=== PATIENT | female | born 1985 | race Caucasian/White ===

== ENCOUNTER 2020-05-23 05:14 | Inpatient (IN) ==
[2020-05-16 15:57] LABS: Basophils # 0.1 10*3/uL (0.0-0.2); Basophils % 0.7 % (0.0-0.8); Eosinophils # 0.1 10*3/uL (0.0-0.87); Eosinophils % 1.2 % (0.00-10.9); Hematocrit 40.1 VOL% (35.7-47.0); Immature Granulocytes % 0.4 %; Immature Granulocytes Absolute 0.04 #; Lymphocytes # 2.3 10*3/uL (1.4-4.0); Lymphocytes % 24.2 % (21.3-54.2); Mean Corpuscular HGB Conc 32.4 GM/DL (32-36); Mean Corpuscular Volume 90.1 FL (87-102); Mean Platelet Volume 9.3 FL (9.6-12.0); Monocytes % 5.8 % (1.7-12.7); Neutrophils % 67.7 % (38.7-73.9); Platelet Count 410 T/CUMM (130-400); Red Blood Count 4.45 MC/CUMM (3.8-5.5); Red Cell Distribution Width 13.5 % (9.3-17.3); White Blood Count 9.7 T/CUMM (4-12)
[2020-05-16 16:04] LABS: Bilirubin,Urine Negative (Negative); Blood, Urine Large mg/dL (Negative); Glucose,Urine (UA) Negative (Negative); Ketones,Urine Negative (Negative); Mucus,Urine Occasional /LPF (Occasional); Nitrite,Urine Negative (Negative); Protein,Urine Negative; RBC,Urine 81 /HPF (0-4); Squamous Epithelial Cell,Urine Occasional /HPF (0-10); Urine Appearance CLOUDY (Clear); Urine Color Amber (Yellow); Urine Specific Gravity 1.018 (1.001-1.035); Urine Urobilinogen < 2.0 EU/DL (0.2-1.0); WBC,Urine 3 /HPF (0-6)
[2020-05-16 16:09] LABS: PT Patient Result 10.3 SECS (9.8-11.9); Partial Thromboplastin Time 27.1 SECS (23.9-33.8)
[2020-05-16 16:18] LABS: Calcium 9.6 MG/DL (8.5-10.1); Osmolality,Calculated 273.7 MOS/KG (273-304); Potassium 4.2 MMOL/L (3.5-5.1)
[2020-05-23] MEDS ORDERED: FAMOTIDINE 20 MG TABLET PO ONE (06:00)
[2020-05-23] MEDS ORDERED: GABAPENTIN 400 MG CAPSULE PO ONE (06:00)
[2020-05-23] MEDS ORDERED: ceFAZolin 1,000 MG in SYRINGE 1 EACH IV ONE (06:00)
[2020-05-23] MEDS ORDERED: ACETAMINOPHEN 500 MG TABLET PO ONE (06:00)
[2020-05-23] MEDS ORDERED: DIAZEPAM 5 MG TABLET PO ONE (06:00)
[2020-05-23] MEDS ORDERED: LACTATED RINGERS 1,000 ML IV SCH (08:30)
[2020-05-23] MEDS ORDERED: INDIGO CARMINE 5 ML AMP ONE (09:32)
[2020-05-23] MEDS ORDERED: LIDOCAINE 2% 5 ML VIAL ONE (09:36)
[2020-05-23] MEDS ORDERED: MIDAZOLAM 2 MG/2 ML VIAL ONE (09:36)
[2020-05-23] MEDS ORDERED: fentaNYL 100 MCG/2 ML VIAL ONE ×3 (09:36→13:17)
[2020-05-23] MEDS ORDERED: propofoL 200 MG/20 ML VIAL IV ONE (09:36)
[2020-05-23] MEDS ORDERED: ONDANSETRON 4 MG/2 ML VIAL ONE (09:36)
[2020-05-23] MEDS ORDERED: ROCURONIUM 50 MG/5 ML VIAL IV ONE ×2 (09:36→12:06)
[2020-05-23] MEDS ORDERED: FUROSEMIDE 20 MG/2 ML VIAL ONE (10:40)
[2020-05-23] MEDS ORDERED: NEOSTIGMINE 10 MG/10 ML VIAL ONE (11:56)
[2020-05-23] MEDS ORDERED: HYDROmorphone 2 MG/1 ML VIAL ONE (11:56)
[2020-05-23] MEDS ORDERED: GLYCOPYRROLATE 0.4 MG/2 ML VIAL ONE (11:56)
[2020-05-23] MEDS ORDERED: SUGAMMADEX 200 MG/2 ML VIAL IV ONE (13:23)
[2020-05-23] MEDS ORDERED: ONDANSETRON 4 MG/2 ML VIAL IV PRN ×2 (14:44→14:52)
[2020-05-23] MEDS ORDERED: ACETAMINOPHEN 325 MG TABLET PO PRN (14:44)
[2020-05-23] MEDS ORDERED: BENZOCAINE/MENTHOL LOZENGE 18/BOX PO PRN (14:44)
[2020-05-23] MEDS ORDERED: BISACODYL 10 MG SUPP RECTAL PRN (14:44)
[2020-05-23 14:48] LABS: Bilirubin,Urine Negative (Negative); Blood, Urine Negative (Negative); Glucose,Urine (UA) Negative (Negative); Ketones,Urine Negative (Negative); Mucus,Urine Occasional /LPF (Occasional); Nitrite,Urine Negative (Negative); Protein,Urine Negative; RBC,Urine 1 /HPF (0-4); Squamous Epithelial Cell,Urine Occasional /HPF (0-10); Urine Appearance CLEAR (Clear); Urine Color Yellow (Yellow); Urine Specific Gravity 1.016 (1.001-1.035); Urine Urobilinogen < 2.0 EU/DL (0.2-1.0); WBC,Urine 1 /HPF (0-6)
[2020-05-23] MEDS ORDERED: SEVOFLURANE 1 UNIT/15 MINUTE INH ONE (14:48)
[2020-05-23] MEDS ORDERED: PROMETHAZINE INJ 25 MG in SODIUM CHLORIDE 0.9% 50 ML IV PRN (14:52)
[2020-05-23] MEDS ORDERED: diphenhydrAMINE 50 MG/1 ML VIAL IV PRN (14:52)
[2020-05-23] MEDS ORDERED: MEPERIDINE 25 MG/1 ML VIAL IV PRN (14:52)
[2020-05-23] MEDS: HYDROmorphone 2 MG/1 ML VIAL IV PRN ×4 (15:00→15:16)
[2020-05-23] MEDS ORDERED: MEPERIDINE 25 MG/1 ML VIAL ONE (15:02)
[2020-05-23] MEDS: LACTATED RINGERS 1,000 ML IV SCH ×2 (15:14→23:19)
[2020-05-23] MEDS ORDERED: BELLADONNA/OPIUM 30 MG SUPP RECTAL PRN (15:52)
[2020-05-23] MEDS: oxyCODONE/ACETAMINOPHEN 5-325 MG TABLET PO PRN (21:03)
[2020-05-23] MEDS: OXYBUTYNIN 5 MG TABLET PO SCH (21:03)
[2020-05-24] MEDS: IBUPROFEN 800 MG TABLET PO PRN ×3 (01:30→20:24)
[2020-05-24] MEDS: oxyCODONE/ACETAMINOPHEN 5-325 MG TABLET PO PRN ×2 (01:30→07:52)
[2020-05-24 05:30] LABS: Basophils % 0.4 % (0.0-0.8); Eosinophils % 0.3 % (0.00-10.9); Hematocrit 33.3 VOL% (35.7-47.0); Immature Granulocytes % 0.4 %; Immature Granulocytes Absolute 0.05 #; Lymphocytes # 1.9 10*3/uL (1.4-4.0); Lymphocytes % 16.9 % (21.3-54.2); Mean Corpuscular Volume 89.8 FL (87-102); Mean Platelet Volume 9.2 FL (9.6-12.0); Monocytes % 7.1 % (1.7-12.7); Neutrophils % 74.9 % (38.7-73.9); Platelet Count 285 T/CUMM (130-400); Red Blood Count 3.71 MC/CUMM (3.8-5.5); Red Cell Distribution Width 13.4 % (9.3-17.3); White Blood Count 11.2 T/CUMM (4-12)
[2020-05-24] MEDS: OXYBUTYNIN 5 MG TABLET PO SCH ×3 (09:02→21:35)
[2020-05-24] MEDS: SIMETHICONE CHEW 80 MG TABLET PO PRN ×2 (11:56→20:01)
[2020-05-24] MEDS: MAGNESIUM HYDROXIDE SUSP 30 ML UDCUP PO PRN (11:56)
[2020-05-24] MEDS ORDERED: ACETAMINOPHEN/CODEINE 300-30 MG TABLET PO PRN ×2 (19:46)
[2020-05-24] MEDS: PHENAZOPYRIDINE 95 MG TABLET PO SCH (20:01)
[2020-05-24] MEDS: DOCUSATE SODIUM 100 MG CAPSULE PO PRN (21:35)
[2020-05-25] MEDS: MAGNESIUM HYDROXIDE SUSP 30 ML UDCUP PO PRN (00:09)
[2020-05-25] MEDS: SIMETHICONE CHEW 80 MG TABLET PO PRN ×2 (04:18→19:16)
[2020-05-25] MEDS: IBUPROFEN 800 MG TABLET PO PRN ×3 (04:18→23:14)
[2020-05-25 08:34] LABS: Albumin 2.9 G/DL (3.4-5.0); Bilirubin,Total 0.4 MG/DL (0.2-1.0); Calcium 8.5 MG/DL (8.5-10.1); Osmolality,Calculated 272.7 MOS/KG (273-304); Potassium 3.7 MMOL/L (3.5-5.1); Total Protein 6.2 G/DL (6.4-8.2)
[2020-05-25] MEDS: OXYBUTYNIN 5 MG TABLET PO SCH ×3 (08:35→20:34)
[2020-05-25] MEDS: PHENAZOPYRIDINE 95 MG TABLET PO SCH ×2 (08:36→17:09)
[2020-05-25] MEDS: DOCUSATE SODIUM 100 MG CAPSULE PO PRN ×2 (08:36→20:34)
[2020-05-26] MEDS: PHENAZOPYRIDINE 95 MG TABLET PO SCH (09:45)
[2020-05-26] MEDS: OXYBUTYNIN 5 MG TABLET PO SCH (09:45)
[2020-05-26] MEDS: DOCUSATE SODIUM 100 MG CAPSULE PO PRN (09:45)
[2020-05-26] MEDS: IBUPROFEN 800 MG TABLET PO PRN (09:48)
[2020-05-26 11:23] VITALS: BP 133/78
== END 2020-05-26 11:05 | disposition home or self-care (01) | DRG 513 ==
LOC: N.OR 05:14 → N.SDSINP 05:22 → N.OB 16:09
PROVIDERS: ADMIT Specialist; ATTEND Specialist